=== PATIENT | male | born 1990 | race Hispanic/Latino ===

== ENCOUNTER 2023-05-28 12:35 | Emergency (ER) | payer SELFPAY ==
[2023-05-28] MEDS ORDERED: Lidocaine 1% w/Epinephrine 1:100K 50 ML VIAL ONE (12:54)
[2023-05-28] MEDS ORDERED: Bacitracin 1 PK ONE (13:19)
[2023-05-28] MEDS ORDERED: Boostrix 0.5 ML (Tdap) VIAL (>/=7 yrs of age) ONE (13:48)
== END 2023-05-28 13:39 | disposition home or self-care (01) ==
LOC: MADERS 12:35 → EDBD 12:35 → MADERS 13:39
DX: S81.012A Laceration without foreign body, left knee, initial encounter (principal); Z23 Encounter for immunization; W29.3XXA Contact with powered garden and outdoor hand tools and machinery, initial encounter
CPT/HCPCS: 12002; 90471; 90715